=== PATIENT | female | born 1945 | race Caucasian/White ===

== ENCOUNTER 2019-11-23 13:49 | Emergency (ER) | payer MEDICARE, SELFPAY ==
[2019-11-23 13:57] VITALS: BP 168/98; PULSE 55; RESP 18; TEMP 36.8; O2SAT 100; BMI 31.1
--- NOTE | 2019-11-23 17:17 | CTR_ITS ---
PROCEDURE INFORMATION: Exam: CT Head Without Contrast Exam date and time: 11/23/2019 5:29 PM Age: 74 years old Clinical indication: Injury or trauma; Fall; Additional info: Fall head injury hit back of head TECHNIQUE: Imaging protocol: Computed tomography of the head without contrast. Total DLP: 717.25 mGy-cm Radiation optimization: All CT scans at this facility use at least one of these dose optimization techniques: automated exposure control; mA and/or kV adjustment per patient size (includes targeted exams where dose is matched to clinical indication); or iterative reconstruction. COMPARISON: No relevant prior studies available. FINDINGS: Brain: There is a small smoothly marginated rounded focus of hyperdensity along the falx measuring 9 mm in size. This has a smoothly marginated appearance with central dense hyperdensity/calcification compatible with a small partially calcified meningioma. No transcortical edema or mass effect. 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 There is no acute hemorrhage, edema or mass effect. Midline shift: No midline shift. Ventricles: No acute hemorrhage. Prominent choroid plexus is noted in the occipital horns of the lateral ventricles. Bones/joints: Unremarkable. No acute fracture. Sinuses: Visualized sinuses are unremarkable. No fluid levels. Mastoid air cells: Visualized mastoid air cells are well aerated. Soft tissues: There is a posterior frontal scalp hematoma/laceration. Other findings: There is mild volume loss. CT/CT head wo con* [id number] IMPRESSION: 1. There is a small smoothly marginated rounded focus of hyperdensity along the falx measuring 9 mm in size. This has a smoothly marginated appearance with central dense hyperdensity/calcification compatible with a small partially calcified meningioma. No acute hemorrhage, edema or mass effect. 2. 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 3. There is a scalp hematoma/laceration. No acute intracranial abnormality. Radiation Dose CTDIVOL = (mGy): DLP = 717.25 (mGy-cm)
--- NOTE | 2019-11-23 17:26 | W.ED.FALL ---
HPI - Fall General: Chief Complaint: Fall Stated Complaint: Fall with Head Lac Time Seen by Provider: 11/23/19 17:05 History of Present Illness: HPI Narrative: Patient fell down steps backwards couple hours ago striking her back of her head against concrete patient sustained a laceration. She thinks she might had a loss of consciousness. Denies any pain to her neck back extremities etc. she called her friend brought her here to the ER they live an hour away. Friend placed a dressing on her scalp where she has a laceration. Patient denies any neurological symptoms except that she does have some dizziness. She does take an aspirin daily. complaint: fall Onset (ago): hour(s) (2) Fall from: standing and down stairs (#) Fall witnessed: no Place fall occurred: home Loss of consciousness: Unsure Length of LOC: second(s) Prolonged down time: no Symptoms prior to fall: none Context: tripped/slipped Location of injury: head Severity: mild Severity scale (1-10): 3 Associated symptoms-after fall: Reports lightheadedness (Dizziness); Denies abdominal pain or headache(s) Review of Systems Const: Denies: fever, chills or body aches Eyes: Denies: change in vision or blurry vision ENMT: Denies: throat pain or nasal congestion Card: Reports: lightheadedness (Dizziness) Resp: Denies: shortness of breath, productive cough or non-productive cough GI: Denies: abdominal pain, nausea or vomiting Musc: Denies: extremity pain Skin/Breast: Reports: other (Laceration to the back of scalp); Denies: rash Neuro: Denies: headache Psych: Denies: anxiety or depression Yoel/Lymph: Denies: easy bruising PFSH ED PFSH: Social History Smoking and tobacco status: never smoked Physical Exam Const: COMMON NORMALS: no apparent distress, average body habitus and oriented x3 HENMT: COMMON NORMALS: normocephalic HEAD & SCALP: normal to inspection and normocephalic FACE & SINUS: normal facial exam Eye: COMMON NORMALS: conjunctivae normal GENERAL EYE: normal appearance of both eyes CONJUNCTIVA: Yes conjunctivae normal Neck/C-Spine: COMMON NORMALS: no JVD Chest: COMMONS NORMALS: inspection of chest normal Resp: COMMON NORMALS: normal respiratory effort and clear to auscultation bilaterally AUSCULTATION: clear to auscultation bilaterally Cardio: COMMON NORMALS: no JVD, regular rate and regular rhythm RATE: regular rate RHYTHM: regular rhythm GI: COMMON NORMALS: normal to inspection, nondistended, normoactive bowel sounds Extremity: COMMON NORMALS: normal to inspection and full ROM Neuro: COMMON NORMALS: oriented x3 and CN's II-XII intact bilaterally Skin: TRAUMA: laceration (Back of scalp) Course Vital Signs: Vital signs: Vital Signs Temperature 98.3 F 11/23/19 13:57 Pulse Rate 55 L 11/23/19 13:57 Respiratory Rate 18 11/23/19 13:57 Blood Pressure 168/98 11/23/19 13:57 Pulse Oximetry 100 11/23/19 13:57 Discharge Plan Discharge Condition: Stable Coding Level of Care Code ED Backend [employer] for [employer]iel
[2019-11-23] MEDS: lidocaine 1% INJ 20 mL 4 ML INTRADERMA (18:40)
[2019-11-23] MEDS: cephALEXin 500 mg Capsule PO (18:45)
[2019-11-23 20:08] VITALS: BP 144/92; PULSE 67; RESP 16; TEMP 36.3; O2SAT 98
--- NOTE | 2019-11-30 11:19 | PC.NURSE ---
HERE FOR STAPLE REMOVAL 11 ELVIN TOP OF HEAD HEALING WELL. SAMMIE HOLCOMB PA IN TO ASSESS ORDERS TO GO AHEAD AND REMOVE ELVIN. 11 ELVIN REMOVED PT ILIA WELL NO SIGNS OF INFECTION. CARE INSTRUCTIONS GIVEN TO PT AND FAMILY
== END 2019-11-23 19:00 | disposition home or self-care (01) ==
PROVIDERS: Emergency Provider Nurse Practitioner Family; Family Provider Family Medicine; PCP Family Medicine
DX: S01.01XA Laceration without foreign body of scalp, initial encounter (principal); W10.9XXA Fall (on) (from) unspecified stairs and steps, initial encounter; Y92.009 Unspecified place in unspecified non-institutional (private) residence as the place of occurrence of the external cause
CPT/HCPCS: 12345; 70450; 99281; 99283; J2001